=== PATIENT | female | born 1935 | race Caucasian/White ===

== ENCOUNTER 2017-01-12 15:26 | Inpatient (IN) | payer MEDICARE ==
--- NOTE | ~2017-01-12 | CN ---
Consultation Report [address]. [address] NAME: ALLY NEWBERRY : 34 STATUS : ADM IN PAT#: [id number] AGE: 81 ADM/REG DATE : 01/12/17 MR#: [id number] REPORT SERV DATE: 01/13/17 DICTATED BY: KODY ARAUJO DATE: 01/13/17 REPORT STATUS : Draft TRANSCRIBED BY: MODL DATE: 01/13/17 CARDIOLOGY CONSULTATION. DATE OF CONSULTATION: 01/13/2017 AUTOMATION TEST ENGINEER: Ross Leyva M.D. INDICATIONS: Abnormal troponin. HISTORY OF PRESENT ILLNESS: Ally Newberry is an 81-year-old female, who was admitted to the emergency room yesterday with altered mental status and hypoxia. She was in an assisted living facility, she apparently had issues with hypoxia throughout the morning yesterday and was brought to the emergency room. She went on to have some hypercarbia and was placed on BiPAP. She has known coronary artery disease and previous bypass grafting. She had been treated with Narcan several times throughout the night. There was a question that the altered mental status and hypoxia is related to medications. The patient is arousable this morning, but somnolent. She specifically denies any chest pain or precordial symptoms. She reports some vague shortness of breath. REVIEW OF SYSTEMS: Notable for some diarrhea apparently as well as vomiting over the preceding couple of days along with progressive lethargy. All other review of systems negative. In the emergency room. The patient tested positive for opiates as well as cannabinoids. PAST MEDICAL HISTORY: Chronic systolic heart failure with an ejection fraction of 40% by echo in June 2016. She has known coronary disease, previous bypass grafting. She has chronic kidney disease, hypertension, hyperlipidemia, diabetes, dementia, reflux disease, carotid disease, history of osteomyelitis and toe resection. She has a dual-chamber [employer] defibrillator, previous right carotid endarterectomy. ALLERGIES: DILAUDID. MEDICATIONS: 1. Norvasc. 2. Amoxicillin. 3. Aspirin. 4. Coreg. 5. Celexa. 6. Coenzyme Q10. 7. Aricept. 8. Lasix. 9. Currently IV subcu heparin. Consultation Report [address] [place]. [address] NAME: ALLY NEWBERRY : 34 STATUS : ADM IN PAT#: [id number] AGE: 81 ADM/REG DATE : 01/12/17 MR#: [id number] REPORT SERV DATE: 01/13/17 DICTATED BY: KODY ARAUJO DATE: 01/13/17 REPORT STATUS : Draft TRANSCRIBED BY: MODLibertad DATE: 01/13/17 10.Magnesium oxide. 11.Multivitamin. 12.Protonix. 13.Sodium bicarbonate. 14.Thiamin. 15.Levemir. SOCIAL HISTORY: No tobacco. Lives at [facility]. FAMILY HISTORY: Notable for diabetes and coronary artery disease. PHYSICAL EXAMINATION: VITAL SIGNS: Blood pressure 172/74, it has ranged 104 systolics up to 170s systolics, temperature 97.4, oxygen saturation 98% on BiPAP, and heart rate is 65. Telemetry is atrially paced with occasional ventricular pacing. ECG is atrially paced with inferior and anterolateral mild ST-segment depressions. GENERAL: Appears stated age, no distress. Lethargic on BiPAP. EYES: Sclerae anicteric, no arcus senilis. MOUTH: Oral mucosa moist, lips acyanotic. NECK: Jugular venous pressure normal, no carotid bruits. LUNGS: Diminished breath sounds in the bases. CARDIAC: Regular rate and rhythm, no murmurs, gallops or rubs. ABDOMEN: Soft, nondistended, nontender. EXTREMITIES: No edema. SKIN: Warm and dry. NEURO/PSYCH: Arousable, but then again easily somnolent. DATA: Creatinine 1.9, potassium 3.8. Troponin is 0.3. CK-MB 1.7 with a total CK of 63. Albumin is 3. Hemoglobin 10.9. Procalcitonin 1.5. BNP 1210. Initial troponin 0.29. IMPRESSIONS: 1. Hypoxia with altered mental status. Question med effects as described above. 2. Abnormal troponin with no chest pain and very mild ST depressions on ECG, anticipate this to be a type 2 process secondary to her hypoxia in the context of known coronary artery disease. 3. Known coronary artery disease with previous bypass grafting and ischemic cardiomyopathy. 4. Chronic systolic heart failure, on aspirin and Coreg, not on Dannie or ARB secondary to chronic kidney disease. 5. Dual chamber ICD with history of VF status post [employer] generator replacement which is her current device. 6. Chronic kidney disease. Consultation Report [place] [address] [place]. [address] NAME: ALLY NEWBERRY : 34 STATUS : ADM IN PAT#: [id number] AGE: 81 ADM/REG DATE : 01/12/17 MR#: [id number] REPORT SERV DATE: 01/13/17 DICTATED BY: KODY ARAUJO DATE: 01/13/17 REPORT STATUS : Draft TRANSCRIBED BY: MODL DATE: 01/13/17 7. Elevated BNP and mild pulmonary vascular prominence on chest x-ray. RECOMMENDATIONS: I agree with diuresis, strict I's and O's. Troponin abnormality appears to be a type 2 process, recommend conservative measures, add statin, and continue aspirin and Coreg. We will follow. VIKTORIYA/REY Kody Araujo M.D. / [id number] CC: MD Kody Castañeda NP
--- NOTE | ~2017-01-12 | DS ---
Discharge Summary [place] [id number] [facility] [place]. [address] NAME: TISHA NEWBERRY : 34 STATUS : ADM IN [facility]#: [id number] AGE: 81 ADM/REG DATE : 01/12/17 MR#: [id number] REPORT SERV DATE: 01/17/17 DICTATED BY: GABRIEL VICTORIA DATE: 01/16/17 REPORT STATUS : Draft TRANSCRIBED BY: MODLibertad DATE: 01/16/17 ADMISSION DATE: 01/12/2017 DISCHARGE DATE: 01/16/2017 PROCEDURES DONE: 1. 01/12/2017: CT of the head without contrast, no acute intracranial abnormality identified at this time. Mild to moderate cortical volume loss and findings compatible with mild chronic deep white matter ischemic changes. Slightly limited examination due to patient motion. 2. 01/12/2017: Chest x-ray: CABG. AICD. Shallow inspiration with minimal bibasilar atelectasis. Slight pulmonary vascular prominence. 3. 01/13/2017: Chest x-ray PA and lateral. Bibasilar atelectasis and vascular prominence have improved compared to prior exam. Cardiomegaly is unchanged. 4. 01/13/2017: Chest x-ray: Improving venous congestion. Continued low lung volumes with bibasilar atelectasis. However, there is improved aeration of the lung bases since prior to examination. Trace amount of pleural fluid may be present, status post CABG and AICD placement. 5. 01/14/2017: CT head without contrast, no acute intracranial hemorrhage or acute intracranial pathology. Stable mild diffuse cerebral involutional changes. Stable small bandlike old lacunar infarct, external capsule right basal ganglia. CONSULT: Dr. Araujo for Cardiology. REASON FOR ADMISSION: Change in mental status and hypoxemia. HISTORY OF PRESENT ILLNESS: An 81-year-old white female with past medical history of CHF with systolic dysfunction, EF 55%, status post AICD, chronic kidney disease, stage IV; hypertension; hyperlipidemia; diabetes type 2, dementia; presenting with altered mental status and hypoxemia. The patient was admitted for further evaluation of her hypoxemia. The patient was noted to have acute hypoxic respiratory failure questionable to medications. The patient was positive for opiates and also positive for cannabinoids. The patient was then admitted in the Intensive Care Unit for monitoring purposes. The patient was also noted to have elevated troponin. Cardiology was consulted. Cardiology felt the patient has elevated troponin with no chest pain and very mild ST depression. Cardiology felt the elevated troponin secondary to hypoxemia. The patient did not develop any chest pain during the hospital stay. However, her mental status gradually improved with oxygenation. The patient did have a little bit of diuretics given for venous congestion. Eventually, the patient's O2 saturation improved. Cardiology recommended to continue the diuretics. DISPOSITION: The patient is feeling fine, no complaints. ACTIVITIES: As tolerated. DIET: Diabetic. INSTRUCTIONS UPON DISCHARGE: The patient to follow up with Cardiology within two weeks' Discharge Summary [address] [place]. [address] NAME: TISHA NEWBERRY : 34 STATUS : ADM IN [facility]#: [id number] AGE: 81 ADM/REG DATE : 01/12/17 MR#: [id number] REPORT SERV DATE: 01/17/17 DICTATED BY: GABRIEL VICTORIA DATE: 01/16/17 REPORT STATUS : Draft TRANSCRIBED BY: REY DATE: 01/16/17 time. The patient is to follow up with Cardiology within one to two weeks' time. MEDICATION UPON DISCHARGE: 1. Norvasc 10 mg p.o. daily. 2. Aspirin 81 mg p.o. daily. 3. Lipitor 40 mg p.o. at bedtime. 4. Amoxicillin 5 mg p.o. t.i.d. 5. Coreg 6.25 mg p.o. b.i.d. 6. Celexa 30 mg p.o. daily. 7. Trazodone 25 mg p.o. at bedtime. 8. Vitamin D3 of 2000 units p.o. daily. 9. Coenzyme Q 100 mg p.o. daily. 10.Aricept 5 mg p.o. at bedtime. 11.Flonase one spray each morning. 12.Lasix 40 mg p.o. daily. 13.Insulin sliding scale. 14.Lantus 17 units subcu daily. 15.Protonix 40 mg p.o. b.i.d. 16.Bicarb 1300 mg p.o. b.i.d. 17.Albuterol inhaler q.6 hours p.r.n. 18.Magnesium 250 mg p.o. daily. 19.Oxycodone 5/325 one tab q.8 hours p.r.n. for pain. 20.Neurontin 300 mg p.o. b.i.d. 21.Ambien 5 mg p.o. at bedtime. 22.Ultram 25 mg p.o. q.8 p.r.n. 23.Imodium 2 mg Q. 6 per day p.r.n. 24.Tylenol 650 p.o. q.4 hours p.r.n. 25.Lotrimin topical p.r.n. 26.Flexeril 5 mg p.o. t.i.d. p.r.n. 27.Zofran 4 mg q.4 hours p.r.n. 28.Nitroglycerin sublingual p.r.n. PRIMARY DIAGNOSIS UPON DISCHARGE: 1. Encephalopathy secondary to hypoxemia versus medications. 2. Acute hypoxemia, respiratory failure secondary to medications. 3. Elevated troponin secondary to hypoxemia. 4. Congestive heart failure, systolic dysfunction, EF of 55%. 5. Chronic kidney disease, stage IV. 6. Positive UDS for cannabinoids. 7. Dementia. 8. Hypertension. 9. Hypercholesterolemia. Discharge Summary [address] [address] NAME: TISHA NEWBERRY : 34 STATUS : ADM IN [facility]#: [id number] AGE: 81 ADM/REG DATE : 01/12/17 MR#: [id number] REPORT SERV DATE: 01/17/17 DICTATED BY: GABRIEL VICTORIA DATE: 01/16/17 REPORT STATUS : Draft TRANSCRIBED BY: REY DATE: 01/16/17 BAUDILIO/REY Gabriel Victoria MD / [id number] CC: MD Kody Castañeda NP
--- NOTE | ~2017-01-12 | HP ---
History And Physical [facility] [address] [place]. [address] NAME: TISHA NEWBERRY : 34 STATUS : ADM IN [facility]#: [id number] AGE: 81 ADM/REG DATE : 01/12/17 MR#: [id number] REPORT SERV DATE: 01/12/17 DICTATED BY: VALENTÍN WILLARD DATE: 01/12/17 REPORT STATUS : Draft TRANSCRIBED BY: MODLibertad DATE: 01/12/17 DATE OF ADMISSION: 01/12/2017 POINT OF ENTRY: [facility] Emergency Department. PRIMARY CUTTER HEAD SHARPENER: Ross Leyva M.D. CHIEF COMPLAINT: Altered mental status and hypoxemia. HISTORY OF PRESENT ILLNESS: Ms. Newberry is an 81-year-old female with a history of chronic systolic congestive heart failure, most recent ejection fraction being 40%, status post ICD insertion as well as chronic kidney disease, stage III to stage IV; hypertension; hyperlipidemia; insulin-dependent diabetes mellitus type 2; as well as dementia who was brought to the emergency department today for reports of sedation, lethargy, altered mental status, as well as report of low oxygen saturations at her nursing facility. Son is at bedside and provides history as the patient is altered and sedated, and unable to provide any history for herself. She is a long-term resident of [facility]. He states that about two nights ago she told him over the phone that she has had an episode of vomiting as well as some diarrhea. Today, the family was called by [facility] for reports of the patient being very sedated, lethargic, almost unable to be aroused as well as low oxygen saturations as noted by the staff at [facility]. Initial evaluation in the emergency department is notable for some hypoxemia on room air, but currently saturating well on 4 liters by nasal cannula. Initial ABG was unremarkable, but she was placed on BiPAP for the patient's profound altered mental status and sedation. Chest x-ray showed some mild intravascular volume overload with poor inspiration. CT scan of the brain was unremarkable. Labs were unremarkable except for a troponin level of 0.29. Ammonia level was negative. Urinalysis was negative for infection. Urine drug screen was positive for opiates as well as cannabinoids. Despite being placed on BiPAP, she did develop some mild hypercarbia; however, with change in her BiPAP settings, this has since been corrected on a third ABG. She was given 0.2 mg of Narcan x2 without any significant improvement in her mental status. The patient was subsequently admitted to the Hospitalist Service for further evaluation and management. REVIEW OF SYSTEMS: Comprehensive review of systems otherwise negative unless listed in the history of present illness. Of note, the patient is unable to provide any history to us given her altered mental status. PREVIOUS MEDICAL HISTORY: 1. Chronic systolic congestive heart failure, ejection fraction of 40%, status post ICD insertion. 2. Chronic kidney disease, stage III to stage IV. Recent baseline creatinine approximately 1.7 to 2.2. 3. Hypertension. History And Physical [address] [address] NAME: TISHA NEWBERRY : 34 STATUS : ADM IN [facility]#: [id number] AGE: 81 ADM/REG DATE : 01/12/17 MR#: [id number] REPORT SERV DATE: 01/12/17 DICTATED BY: VALENTÍN WILLARD DATE: 01/12/17 REPORT STATUS : Draft TRANSCRIBED BY: REY DATE: 01/12/17 4. Hyperlipidemia. 5. Insulin-dependent diabetes mellitus type 2. 6. Dementia. 7. Gastroesophageal reflux disease with peptic ulcer disease. 8. Carotid vascular disease. 9. History of left second toe osteomyelitis, status post resection. PAST SURGICAL HISTORY: 1. AICD insertion. 2. Right carotid endarterectomy. 3. Right hip replacement. 4. Left wrist. 5. Left second toe amputation. ALLERGIES: TO DILAUDID. HOME MEDICATIONS: 1. Tylenol 650 mg q.4 hours p.r.n. 2. Albuterol 3 mL inhalation q.6 hours p.r.n. 3. Norvasc 10 mg daily. 4. Amoxicillin 500 mg t.i.d. 5. Aspirin 81 mg daily. 6. Carvedilol 6.25 mg b.i.d. 7. Vitamin D 2000 units b.i.d. 8. Celexa 30 mg daily. 9. CoQ10 100 mg daily. 10.Flexeril 5 mg t.i.d. p.r.n. 11.Aricept 5 mg q.h.s. 12.Flonase one spray nasal daily. 13.Lasix 40 mg daily. 14.Gabapentin 300 mg t.i.d. 15.Insulin sliding scale. 16.Lantus 17 units daily. 17.Imodium 2 mg p.o. q.6 hours p.r.n. 18.Nitroglycerin 0.4 mg sublingual p.r.n. 19.Zofran 4 mg q.4 hours p.r.n. 20.Percocet 5/325 one to two tablets q.6 hours p.r.n. 21.Protonix 40 mg daily. 22.Sodium bicarbonate 1300 mg b.i.d. 23.Tramadol 25 mg q.8 hours. 24.Trazodone 25 mg q.h.s. 25.Magnesium 250 mg daily. 26.Lotrimin AF topical. 27.Ambien 5 mg q.h.s. SOCIAL HISTORY: Denies any tobacco, alcohol, or illicits. She is a resident of [facility]. History And Physical [address] [address] NAME: TISHA NEWBERRY : 34 STATUS : ADM IN [facility]#: [id number] AGE: 81 ADM/REG DATE : 01/12/17 MR#: [id number] REPORT SERV DATE: 01/12/17 DICTATED BY: VALENTÍN WILLARD DATE: 01/12/17 REPORT STATUS : Draft TRANSCRIBED BY: REY DATE: 01/12/17 FAMILY MEDICAL HISTORY: Mother and father both with diabetes. Siblings with history of coronary artery disease. LABS AND IMAGIN. White count is 4.3, hemoglobin is 10.2, hematocrit is 31.2, and platelet count is 165. INR 1.2. 2. Sodium is 142, potassium of 4.1, chloride 103, carbon dioxide 30, BUN 45, creatinine 2.17, glucose is 103, calcium is 8.5, protein 6.1, albumin is 3.1, bilirubin is 0.6, ALT is 24, AST 34, and alkaline phosphatase is 89. 3. Troponin 0.29. 4. Lactic acid 0.7. 5. Ammonia level is 10. Urine drug screen positive for opiates and cannabinoids. Aspirin, acetaminophen, and alcohol levels are negative. 6. Urinalysis: Specific gravity was 1.013 with hazy appearance with 5 white blood cells with rare bacteria, but negative leukocyte esterase, negative nitrites with trace ketones. 7. Chest x-ray per my review shows some mild intravascular volume overload, primarily in the bases with poor inspiration. 8. CT scan of the brain shows no acute intracranial abnormality, does show some mild-to- moderate volume loss. 9. EKG per my review shows a paced rhythm with no evidence of any acute ischemia or infarction. 10.ABG #1; pH is 7.38, pCO2 is 46, PO2 is 73, bicarb is 27, and saturating 94% on 4 liters by nasal cannula. 11.ABG #2; pH is 7.23, pCO2 is 55, PO2 is 59, bicarb is 28, and saturating 98% on unknown oxygen support. 12.ABG #3; pH is 7.48, pCO2 is 34, PO2 is 84, bicarb is 25, and saturating 96% on 30% Fi. PHYSICAL EXAMINATION: VITAL SIGNS: Temperature is 100.3 degrees Fahrenheit, pulse is 65, respirations 12, saturating 97% on 4 liters by nasal cannula, and blood pressure 107/48. GENERAL: The patient is a chronically ill-appearing elderly female. Son is at bedside. She is currently very sedated and lethargic, will awaken to painful stimuli, but quickly falls back asleep after about 5 or 10 seconds. While awake, she will follow commands. Moves all extremities well and will verbalize. HEENT: Atraumatic and normocephalic. Dry mucous membranes. Pupils are equal and round, but very pinpoint at 1 to 2 mm. No scleral icterus. NECK: No jugular venous distention. No carotid bruits. CARDIAC: Regular rate and rhythm. No murmurs, rubs, or gallops. Normal S1 and S2. LUNGS: On BiPAP currently, she has poor inspiratory effort at this time secondary to sedation. I do not appreciate any gross wheezes, rhonchi, or crackles. ABDOMEN: Soft, nontender, and nondistended. Good bowel sounds. EXTREMITIES: Warm and well perfused. No cyanosis or clubbing. She has trace lower extremity edema. SKIN: Warm and dry. PSYCH: Sedated and lethargic. History And Physical [address] [place]. [address] NAME: NEWBERRYTISHA : 34 STATUS : ADM IN PAT#: [id number] AGE: 81 ADM/REG DATE : 01/12/17 MR#: [id number] REPORT SERV DATE: 01/12/17 DICTATED BY: VALENTÍN WILLARD DATE: 01/12/17 REPORT STATUS : Draft TRANSCRIBED BY: MODLibertad DATE: 01/12/17 NEURO: Sedated and lethargic. As I mentioned previously, will awaken with painful stimuli and stay awake for 5 to 15 seconds and then quickly fall back asleep. While awake, she will follow commands. She will make attempt to speak. ASSESSMENT AND PLAN: Ms. Newberry is an 81-year-old female who was brought from [facility] for reports of hypoxemia as well as altered mental status with profound sedation and lethargy of unclear etiology. PROBLEM LIST: 1. Acute encephalopathy. 2. Sedation and lethargy. 3. Elevated troponin level. 4. Acute hypoxic respiratory failure. 5. Transient hypercarbia, now resolved. 6. Chronic kidney disease, stage III to stage IV. 7. Chronic systolic congestive heart failure. PLAN: 1. Encephalopathy with sedation and lethargy. Etiology is unclear at this time. Medication effect is always possible as she is on multiple sedating medications including Flexeril, trazodone, tramadol, Percocet, Neurontin, and Ambien. We will hold all of these medications. Of note, she has now received a total of 0.8 mg of IV Narcan without significant effect. CT scan of brain was unremarkable. Ammonia level is negative. Urinalysis was negative for UTI and urine drug screen is positive for opiates as well as cannabinoids. We will consult Neurology for assistance with management of the patient's encephalopathy, check vitamin B12 level as well as thyroid function studies. We were unable to get MRI at this time secondary to the patient's ICD. We will continue the patient on BiPAP overnight to prevent any further hypercarbia and we will admit the patient to [facility] for close observation. 2. Acute hypoxic respiratory failure, unclear etiology at this time. She is requiring minimal oxygen support at this time. We will attempt to wean as tolerated. She appeared to be somewhat mildly volume overloaded on chest x-ray, but euvolemic on exam. BNP is pending. We will try some low-dose IV Lasix to see if this improves. 3. Transient hypercarbia. The patient did experience some hypercarbia while here in the ER, this has resolved while she has been on BiPAP. She has no history of lung disease. We will to continue to monitor while on BiPAP. 4. Elevated troponin level. EKG is nonischemic. The patient is unable to tell me if she has any chest pain or not. We will trend out cardiac enzymes and consult the patient's primary chief lifestyle officer, Dr. Leyva, for assistance. 5. Chronic systolic congestive heart failure. Again, the patient appears euvolemic on exam, but slightly overload on chest x-ray. We will place her on IV Lasix as she is unable to swallow at this time. 6. Chronic kidney disease, stage III to stage IV. Creatinine of 2.17 appeared to be within her recent baseline. We will continue to monitor. 7. DVT prophylaxis. Heparin subcutaneously. 8. Code status. The patient wishes to be full code. History And Physical [address] [address] NAME: TISHA NEWBERRY : 34 STATUS : ADM IN PAT#: [id number] AGE: 81 ADM/REG DATE : 01/12/17 MR#: [id number] REPORT SERV DATE: 01/12/17 DICTATED BY: VALENTÍN WILLARD DATE: 01/12/17 REPORT STATUS : Draft TRANSCRIBED BY: REY DATE: 01/12/17 EDEN/REY Valentín Willard MD / [id number] CC: MD Urbano Castañeda Jr., M.D. Gregg Shander, M.D.
--- NOTE | ~2017-01-12 | CN ---
Consultation Report [facility] [address] [place]. [address] NAME: TISHA NEWBERRY : 33 STATUS : ADM IN [facility]#: [id number] AGE: 81 ADM/REG DATE : 01/12/17 MR#: [id number] REPORT SERV DATE: 01/13/17 DICTATED BY: DATE: REPORT STATUS : Draft TRANSCRIBED BY: MODL DATE: 01/13/17 NEUROLOGY CONSULTATION DATE OF CONSULTATION: 01/13/2017 REASON FOR CONSULT: Encephalopathy. HISTORY OF PRESENT ILLNESS: This is an 81-year-old female who presented to [facility] secondary to lethargic and drowsiness with the patient was unable to provide history. At the time of ER presentation, the patient was noted to have some vomiting as well as diarrhea and was noted to have increasing sedation and lethargic. The patient was presented to the emergency department and was noted to have hypoxia with decreased O2 saturation. The patient was placed on BiPAP overnight with adjustment of setting and was noted to have subsequent improvement of oxygenation and was noted to have improved mental status today. According to nursing staff, the patient does not remember what was going on but does remember the gastrointestinal symptoms that the patient has had experienced. Denies any fevers and denies any focal weakness or numbness at the time of evaluation. The patient's review of systems otherwise negative except for those mentioned in the HPI. PAST MEDICAL HISTORY: Significant for chronic systolic congestive heart failure, EF of 40%, status post pacemaker and defibrillator placement. The patient also was noted to have chronic kidney disease, hypertension, hyperlipidemia, insulin-dependent diabetes, and history of dementia on Aricept; gastroesophageal reflux disease; carotid vascular disease; and history of osteomyelitis, status post resection of the toe. ALLERGIES: THE PATIENT WAS NOTED TO HAVE ALLERGY TO DILAUDID. HOME MEDICATIONS: The patient's home medications consist of Tylenol; albuterol; Norvasc; amoxicillin; aspirin; Coreg; vitamin D3; Celexa; Coenzyme Q10; Flexeril; Aricept; Flonase; Lasix; Neurontin; NovoLog; Lantus; Imodium; nitroglycerin; Zofran; Endocet; Protonix; sodium; Ultram; trazodone; magnesium; and Ambien. SOCIAL HISTORY: Denies tobacco, alcohol, or recreational drug usage. FAMILY HISTORY: Significant for diabetes as well as coronary artery disease. PHYSICAL EXAMINATION: VITAL SIGNS: At the time of evaluation overnight, the patient was noted to have vital signs with T-max of 98.3, heart rate of 64 to 65, respirations of 19 to 38, and blood pressure of 128 to 172 over 51 to 74. GENERAL: The patient is well developed, well nourished, in no acute distress. CARDIOVASCULAR: Regular rate and rhythm. No carotid bruits were otherwise auscultated. PULMONARY: Examination was clear to auscultation bilaterally. Consultation Report [facility] [id number] [place]. [address] NAME: TISHA NEWBERRY : 33 STATUS : ADM IN PAT#: [id number] AGE: 81 ADM/REG DATE : 01/12/17 MR#: [id number] REPORT SERV DATE: 01/13/17 DICTATED BY: DATE: REPORT STATUS : Draft TRANSCRIBED BY: MODL DATE: 01/13/17 NEUROLOGICAL: Generally, the patient is alert, oriented to person, place, year, and month; easily distractible at the time of evaluation, at times gives conflicting information at the time of evaluation. Intact registration, difficulty with recall. Cranial nerves 2 through 12, pupils equal, round, and reactive to light. Extraocular eye movement was noted to be intact with the patient noted to have mild decreased nasolabial fold on the right. Reports symmetrical facial sensation. Midline tongue. Normal palatal movement. Decreased hearing in bilateral ears. The patient was noted to have decreased range of motion in bilateral shoulders which the patient contributed to previous shoulder injury, otherwise is able to move bilateral upper extremity and is able to move bilateral lower extremity at the time of evaluation upon command. Right upper extremity [id number] examination demonstrated no ataxia with the patient having difficulties completing [id number] examination in her left upper extremity. Reports symmetrical sensation in bilateral upper extremity at the time of evaluation. Deep tendon reflex was 1+ throughout. Downgoing toe on bilateral plantar reflexes. Gait was not evaluated at the time of evaluation. LABORATORY STUDIES: Demonstrated white blood cell count of 4.2, hemoglobin of 10.9, hematocrit of 32.9, and platelet count of 156. Chemistry panel: Procalcitonin 1.51, sodium 144, potassium of 3.8, chloride 108, bicarb 28, BUN of 41, creatinine 1.91, glucose of 68, and calcium of 9.1. Troponin was 0.30. ABG this morning demonstrated pH of 7.37, pCO2 of 48, PO2 of 104, bicarb 26.5, and O2 saturation of 96.8. Urine drug screen is positive for cannabinoids as well as opioids. Urinalysis demonstrated negative leukocyte esterase, negative nitrite. CT scan of the brain demonstrated generalized atrophy, but otherwise no clear abnormality was noted. No acute event was seen. Chest x-ray this morning demonstrated improved venous congestion. IMPRESSION: Encephalopathy, improved mentation likely secondary to hypoxia. Symptom is improved. We will continue monitoring. If the patient became febrile, we will obtain lumbar puncture. RECOMMENDATIONS: 1. Continue Lasix as per hospitalist. 2. We will monitor the patient's mentation. 3. Lumbar puncture if febrile. 4. Avoid hypoxia. [facility]/MODL Preston Ramirez MD / [id number] CC: Consultation Report [address] [address] NAME: TISHA NEWBERRY : 33 STATUS : ADM IN [facility]#: [id number] AGE: 81 ADM/REG DATE : 01/12/17 MR#: [id number] REPORT SERV DATE: 01/13/17 DICTATED BY: DATE: REPORT STATUS : Draft TRANSCRIBED BY: MODL DATE: 01/13/17 MD Kody Castañeda NP
[2017-01-12 15:05] LABS: BE (BASE EXCESS) 1.6 MEQ/L (0 +/- 2.5); CARBOXYHEMOGLOBIN 1.7 % (0-3); HEMOBLOGIN CONTENT 10.4 G/DL (12-16); INSTRUMENT SERIAL # 8087; METHEMOGLOBIN 0.1 % (0-3); O2 CONTENT 13.5 VOL% (18-24); PCO2 (CO2 TENSION) 46 MMHG (35-45); PO2 (O2 TENSION) 73 MMHG (79-93); SAMPLE Arterial; pH 7.38 (7.37-7.43)
[2017-01-12 15:06] LABS: ALLENS TEST Pos; DEVICE NC
[2017-01-12 15:14] LABS: BASOPHILS 0.2 %; BASOPHILS ABSOLUTE 0.01 10/3/uL (0.0-0.16); EOSINOPHILS 0 %; ER CBC TAT 0 Hrs 07 Mins; IMMATURE GRANULOCYTES 0.2 %; IMMATURE GRANULOCYTES ABSOLUTE 0.01 10/3/uL (0.0-0.11); LYMPHOCYTES 47.4 %; LYMPHOCYTES ABSOLUTE 2.03 10/3/uL (0.67-4.30); MEAN CORPUS HGB CONC 32.7 g/dL (32.0-36.0); MEAN PLATELET VOLUME 9.9 fL (9.2-13.0); MONOCYTES 8.9 %; MONOCYTES ABSOLUTE 0.38 10/3/uL (0.21-1.20); NEUTROPHILS 43.3 %; NEUTROPHILS ABSOLUTE 1.85 10/3/uL (2.02-8.40); PLATELET COUNT 165 10/3/uL (150-400); RBC DISTRIBUTION WIDTH 14.4 % (12.0-16.0); WHITE BLOOD CELLS 4.3 10/3/uL (4.5-10.5)
[2017-01-12 15:16] LABS: HEMATOCRIT 31.2 % (36.0-48.0); HEMOGLOBIN 10.2 g/dL (12.0-16.0); MANUAL DIFF NO %; MEAN CORPUSCULAR VOLUME 97.8 fL (80-100); RED CELL COUNT 3.19 10/6/uL (4.0-5.6)
[2017-01-12 15:20] LABS: ASCORBIC ACID (UR NOT ORDER) NEG (NEG); BILIRUBIN, URINE NEGATIVE (NEG); ER URINALYSIS TAT 0 Hrs 13 Mins; KETONE, URINE TRACE MG/DL (NEG); LEUKOCYTE ESTERASE(NOT OR NEG (NEG); NITRITE (URINE) NEG (NEG); WBC (NOT ORDERED) (RFLEX) 5 (0-5)
[~2017-01-12 15:26] MED LIST: *UNABLE1; ACET500CAP PO; ALLEGRA PO; AMB10 PO; AMB5 PO; AMOXIL500 MG PO; ARICEPT5 PO; ASAB PO; ASPIRIN; BACDS PO; CELEXA; CELEXA10 PO; CELEXA20 PO; CELEXA40 MG PO; CLARIT10 PO; CO Q-10100 MG PO; COREG3 PO; COREG6 PO; DEMA10T PO; DIABETA5 PO; DIOV160 PO; DIOV80 PO; ENDOCET1 TAB PO; FLONASE NAS; HALF81 PO; HUMALOG SC; IMOD PO; INSNOVR SC; L20 PO; L40 PO; LANTUS SC; LANTUSCART SC; LIPITOR; LIPITOR20 PO; LIPITOR40 PO; LOP50 PO; LORTAB10 PO; MAGNESIUM 250MG PO; MAGNESIUM PO; MAGOX4 PO; MICRONASE5 MG PO; MUCINEX600 MG PO; MULTIVITAMI1; MULTIVITAMI1 PO; MVI PO; NEUR100 PO; NEUR300 PO; NEURONTIN; NORCO1 TAB PO; NORV10 PO; NORV5 PO; NOVOLOG SC; NOVOPEN SC; OXYCOD PO; PCET PO; PERCOCET1 TA4 PO; PRILOSEC40 MG PO; PRIN2.5 PO; PRIN5 PO; PROTONIX; PROTONIX PO; PROTONIX20 MG PO; SILVADENE1 % TOP; SODBICAR10 PO; T PO; TRAZ50 PO; ULTRAM50 PO; VITAMIN D1000 UNI1 PO; VITAMIN D2000 UNIT PO; VITAMIN D31000 UNIT PO; VITAMIN D400 UNI1 PO; VITD PO; ZOFRAN8 PO; ZYRTEC; ZYRTEC ALLGY10 MG PO
[2017-01-12 15:32] LABS: ALBUMIN 3.1 G/DL (3.5-5.0); ALKALINE PHOSPHATASE 89 U/L (45-117); BUN (BLOOD UREA NITROGEN) 45 MG/DL (6-23); CALCIUM, SERUM 8.5 MG/DL (8.5-10.4); CHLORIDE, SERUM 103 MMOL/L (96-112); CO2 (CARBON DIOXIDE) 30 MMOL/L (24-34); CREATININE 2.17 MG/DL (0.55-1.02); GFR AFRICAN AMERICAN 24 ML/MIN (>=60); GFR NON AFRICAN AMERICAN 21 ML/MIN (>=60); POTASSIUM, SERUM 4.1 MMOL/L (3.5-5.3); SGOT(AST) 34 U/L (5-40); SGPT(ALT) 24 U/L (5-65); SODIUM, SERUM 142 MMOL/L (135-148); TOTAL BILIRUBIN 0.6 MG/DL (0-1.2); TOTAL PROTEIN 6.1 G/DL (6.0-8.5)
[2017-01-12 15:33] LABS: GLUCOSE, SERUM 103 MG/DL (60-99); TROPONIN I 0.29 NG/ML (<0.05)
[2017-01-12 16:00] LABS: INTERNATIONAL NORMAL RATI 1.2 UNITS (-); PARTIAL THROMBO TIME 34.3 SEC (22.5-37.2); PROTIME (NOT ORD) 15.4 SEC (12.0-14.5)
[2017-01-12] MEDS ORDERED: ALBUTEROL0.083 % INH (16:21)
[2017-01-12] MEDS ORDERED: LOTRIMIN AF TOP (16:23)
[2017-01-12] MEDS ORDERED: FLEXERIL5 MG PO (16:23)
[2017-01-12] MEDS ORDERED: NTG150 SL (16:24)
[2017-01-12] MEDS ORDERED: ZOFRAN4 PO (16:24)
[2017-01-12] MEDS ORDERED: AMOXIL500C PO (16:25)
[2017-01-12 16:37] LABS: LACTATE 0.7 MMOL/L (0.3-2.4)
[2017-01-12 17:09] LABS: ALLENS TEST Pos; BE (BASE EXCESS) 1.6 MEQ/L (0 +/- 2.5); CARBOXYHEMOGLOBIN 0.4 % (0-3); DEVICE NRB; HCO3 (ACTUAL BICARBONATE) 28.3 MEQ/L (23-27); HEMOBLOGIN CONTENT 10.7 G/DL (12-16); INSTRUMENT SERIAL # 8087; METHEMOGLOBIN 0.1 % (0-3); O2 CONTENT 15.4 VOL% (18-24); PCO2 (CO2 TENSION) 55 MMHG (35-45); PO2 (O2 TENSION) 259 MMHG (79-93); SAMPLE Arterial; pH 7.33 (7.37-7.43)
[2017-01-12 17:16] LABS: AMPHETAMINES (NOT ORD) NEG (NEG); BARBITURATES (NOT ORDERED NEG (NEG); BENZODIAZEPINES (NOT ORD) NEG (NEG); CANNABINOIDS (THC) POS (NEG); COCAINE (NOT ORDERED) NEG (NEG); OPIATES POS (NEG); PHENCYCLIDINE(PCP) NEG (NEG); TRICYCLICS NEG (NEG)
[2017-01-12 17:48] LABS: ACETAMINOPHEN LEVEL (TYLENOL) < 2.0 MCG/ML (10.0-20.0); ALCOHOL < 10 MG/DL (0); SALICYLATE < 1.7 MG/DL (-)
[2017-01-12 19:48] LABS: ALLENS TEST Pos; BE (BASE EXCESS) 2.1 MEQ/L (0 +/- 2.5); BIPAP 16/6 cm.H2O; CARBOXYHEMOGLOBIN 1.1 % (0-3); HCO3 (ACTUAL BICARBONATE) 25.3 MEQ/L (23-27); HEMOBLOGIN CONTENT 11.2 G/DL (12-16); INSTRUMENT SERIAL # 8087; O2 CONTENT 15.1 VOL% (18-24); OPERATOR ID 334499; PCO2 (CO2 TENSION) 34 MMHG (35-45); PO2 (O2 TENSION) 84 MMHG (79-93); SAMPLE Arterial; pH 7.48 (7.37-7.43)
[2017-01-12 21:52] LABS: PROCALCITONIN 1.51 ng/mL (<0.5)
[2017-01-12 22:34] LABS: FREE T4 1.02 NG/DL (0.76-1.46); ULTRASENSITIVE TSH 0.547 MCIU/ML (0.358-3.740)
[2017-01-12 23:20] LABS: ALLENS TEST Pos; BE (BASE EXCESS) 1.6 MEQ/L (0 +/- 2.5); BIPAP 16/6 cm.H2O; CARBOXYHEMOGLOBIN 0.3 % (0-3); HCO3 (ACTUAL BICARBONATE) 26.9 MEQ/L (23-27); HEMOBLOGIN CONTENT 10.9 G/DL (12-16); INSTRUMENT SERIAL # 8083; METHEMOGLOBIN 0.2 % (0-3); O2 CONTENT 16.6 VOL% (18-24); OPERATOR ID 14661; PCO2 (CO2 TENSION) 45 MMHG (35-45); PO2 (O2 TENSION) 532 MMHG (79-93); SAMPLE Arterial; pH 7.39 (7.37-7.43)
[2017-01-13 05:18] LABS: ALLENS TEST Pos; BE (BASE EXCESS) 0.8 MEQ/L (0 +/- 2.5); BIPAP 16/6 cm.H2O; CARBOXYHEMOGLOBIN 0.3 % (0-3); HCO3 (ACTUAL BICARBONATE) 26.5 MEQ/L (23-27); HEMOBLOGIN CONTENT 10.9 G/DL (12-16); INSTRUMENT SERIAL # 8083; METHEMOGLOBIN 0.3 % (0-3); O2 CONTENT 14.9 VOL% (18-24); OPERATOR ID 31061; PCO2 (CO2 TENSION) 48 MMHG (35-45); PO2 (O2 TENSION) 104 MMHG (79-93); SAMPLE Arterial; pH 7.37 (7.37-7.43)
[2017-01-13 05:22] LABS: BASOPHILS 0.2 %; BASOPHILS ABSOLUTE 0.01 10/3/uL (0.0-0.16); EOSINOPHILS 1.7 %; EOSINOPHILS ABSOLUTE 0.07 10/3/uL (0.0-0.53); HEMATOCRIT 32.9 % (36.0-48.0); HEMOGLOBIN 10.9 g/dL (12.0-16.0); LYMPHOCYTES 36.4 %; LYMPHOCYTES ABSOLUTE 1.53 10/3/uL (0.67-4.30); MEAN CORPUS HGB CONC 33.1 g/dL (32.0-36.0); MEAN CORPUSCULAR HEMOGLOB 31.9 pg (26.0-34.0); MEAN CORPUSCULAR VOLUME 96.2 fL (80-100); MEAN PLATELET VOLUME 10.1 fL (9.2-13.0); MONOCYTES 8.3 %; MONOCYTES ABSOLUTE 0.35 10/3/uL (0.21-1.20); NEUTROPHILS 53.4 %; NEUTROPHILS ABSOLUTE 2.24 10/3/uL (2.02-8.40); PLATELET COUNT 156 10/3/uL (150-400); RBC DISTRIBUTION WIDTH 14.1 % (12.0-16.0); RED CELL COUNT 3.42 10/6/uL (4.0-5.6); WHITE BLOOD CELLS 4.2 10/3/uL (4.5-10.5)
[2017-01-13 05:24] LABS: MANUAL DIFF NO %
[2017-01-13 05:45] LABS: CALCIUM, SERUM 9.1 MG/DL (8.5-10.4); CHLORIDE, SERUM 108 MMOL/L (96-112); CO2 (CARBON DIOXIDE) 28 MMOL/L (24-34); CPK 63 U/L (0-200); CREATININE 1.91 MG/DL (0.55-1.02); GFR AFRICAN AMERICAN 28 ML/MIN (>=60); GFR NON AFRICAN AMERICAN 24 ML/MIN (>=60); POTASSIUM, SERUM 3.8 MMOL/L (3.5-5.3); SODIUM, SERUM 144 MMOL/L (135-148)
[2017-01-13 05:46] LABS: BUN (BLOOD UREA NITROGEN) 41 MG/DL (6-23); CK-MB 1.7 NG/ML; GLUCOSE, SERUM 68 MG/DL (60-99); PHOSPHORUS, SERUM 3.1 MG/DL (2.5-4.5)
[2017-01-14 04:52] LABS: BASOPHILS 0.4 %; BASOPHILS ABSOLUTE 0.02 10/3/uL (0.0-0.16); EOSINOPHILS 4.4 %; EOSINOPHILS ABSOLUTE 0.22 10/3/uL (0.0-0.53); HEMATOCRIT 32.8 % (36.0-48.0); HEMOGLOBIN 10.9 g/dL (12.0-16.0); IMMATURE GRANULOCYTES 0.2 %; IMMATURE GRANULOCYTES ABSOLUTE 0.01 10/3/uL (0.0-0.11); LYMPHOCYTES 37.8 %; LYMPHOCYTES ABSOLUTE 1.87 10/3/uL (0.67-4.30); MEAN CORPUS HGB CONC 33.2 g/dL (32.0-36.0); MEAN CORPUSCULAR HEMOGLOB 31.5 pg (26.0-34.0); MEAN CORPUSCULAR VOLUME 94.8 fL (80-100); MONOCYTES 7.5 %; MONOCYTES ABSOLUTE 0.37 10/3/uL (0.21-1.20); NEUTROPHILS 49.7 %; NEUTROPHILS ABSOLUTE 2.46 10/3/uL (2.02-8.40); PLATELET COUNT 165 10/3/uL (150-400); RBC DISTRIBUTION WIDTH 13.7 % (12.0-16.0); RED CELL COUNT 3.46 10/6/uL (4.0-5.6)
[2017-01-14 04:58] LABS: MANUAL DIFF NO %
[2017-01-14 05:13] LABS: A/G RATIO 0.9 (0.7-1.9); ALBUMIN 2.9 G/DL (3.5-5.0); ALKALINE PHOSPHATASE 86 U/L (45-117); BUN (BLOOD UREA NITROGEN) 39 MG/DL (6-23); CALCIUM, SERUM 8.9 MG/DL (8.5-10.4); CHLORIDE, SERUM 104 MMOL/L (96-112); CO2 (CARBON DIOXIDE) 31 MMOL/L (24-34); CREATININE 1.71 MG/DL (0.55-1.02); GFR AFRICAN AMERICAN 32 ML/MIN (>=60); GFR NON AFRICAN AMERICAN 27 ML/MIN (>=60); GLOBULIN 3.2 G/DL (2.5-4.1); GLUCOSE, SERUM 67 MG/DL (60-99); POTASSIUM, SERUM 3.6 MMOL/L (3.5-5.3); SGOT(AST) 70 U/L (5-40); SGPT(ALT) 60 U/L (5-65); SODIUM, SERUM 143 MMOL/L (135-148); TOTAL BILIRUBIN 0.5 MG/DL (0-1.2); TOTAL PROTEIN 6.1 G/DL (6.0-8.5)
[2017-01-14 05:21] LABS: PHOSPHORUS, SERUM 2.1 MG/DL (2.5-4.5)
[2017-01-15 04:59] LABS: BASOPHILS 0.2 %; BASOPHILS ABSOLUTE 0.01 10/3/uL (0.0-0.16); EOSINOPHILS 3.4 %; EOSINOPHILS ABSOLUTE 0.16 10/3/uL (0.0-0.53); HEMATOCRIT 34.8 % (36.0-48.0); HEMOGLOBIN 11.7 g/dL (12.0-16.0); LYMPHOCYTES 35.8 %; MEAN CORPUS HGB CONC 33.6 g/dL (32.0-36.0); MEAN CORPUSCULAR HEMOGLOB 31.9 pg (26.0-34.0); MEAN CORPUSCULAR VOLUME 94.8 fL (80-100); MEAN PLATELET VOLUME 10.1 fL (9.2-13.0); MONOCYTES 7.2 %; MONOCYTES ABSOLUTE 0.34 10/3/uL (0.21-1.20); NEUTROPHILS 53.4 %; NEUTROPHILS ABSOLUTE 2.54 10/3/uL (2.02-8.40); PLATELET COUNT 179 10/3/uL (150-400); RBC DISTRIBUTION WIDTH 13.5 % (12.0-16.0); RED CELL COUNT 3.67 10/6/uL (4.0-5.6); WHITE BLOOD CELLS 4.8 10/3/uL (4.5-10.5)
[2017-01-15 05:05] LABS: MANUAL DIFF NO %
[2017-01-15 05:18] LABS: A/G RATIO 0.9 (0.7-1.9); ALBUMIN 3.1 G/DL (3.5-5.0); ALKALINE PHOSPHATASE 90 U/L (45-117); CHLORIDE, SERUM 104 MMOL/L (96-112); CO2 (CARBON DIOXIDE) 33 MMOL/L (24-34); CREATININE 1.72 MG/DL (0.55-1.02); GFR AFRICAN AMERICAN 32 ML/MIN (>=60); GFR NON AFRICAN AMERICAN 27 ML/MIN (>=60); GLOBULIN 3.5 G/DL (2.5-4.1); PHOSPHORUS, SERUM 2.3 MG/DL (2.5-4.5); POTASSIUM, SERUM 3.5 MMOL/L (3.5-5.3); SGOT(AST) 45 U/L (5-40); SGPT(ALT) 57 U/L (5-65); SODIUM, SERUM 145 MMOL/L (135-148); TOTAL BILIRUBIN 0.6 MG/DL (0-1.2); TOTAL PROTEIN 6.6 G/DL (6.0-8.5)
[2017-01-15 05:24] LABS: BUN (BLOOD UREA NITROGEN) 32 MG/DL (6-23); GLUCOSE, SERUM 81 MG/DL (60-99)
[2017-01-15 05:28] LABS: CALCIUM, SERUM 8.7 MG/DL (8.5-10.4)
[2017-01-16 05:45] LABS: CALCIUM, SERUM 9.3 MG/DL (8.5-10.4); CHLORIDE, SERUM 103 MMOL/L (96-112); CO2 (CARBON DIOXIDE) 33 MMOL/L (24-34); CREATININE 1.65 MG/DL (0.55-1.02); GFR AFRICAN AMERICAN 33 ML/MIN (>=60); GFR NON AFRICAN AMERICAN 29 ML/MIN (>=60); POTASSIUM, SERUM 4.1 MMOL/L (3.5-5.3); SODIUM, SERUM 144 MMOL/L (135-148)
[2017-01-16 05:47] LABS: BUN (BLOOD UREA NITROGEN) 25 MG/DL (6-23); GLUCOSE, SERUM 63 MG/DL (60-99); PHOSPHORUS, SERUM 3.5 MG/DL (2.5-4.5)
[2017-01-17 01:24] LABS: BASOPHILS 0.5 %; BASOPHILS ABSOLUTE 0.03 10/3/uL (0.0-0.16); EOSINOPHILS ABSOLUTE 0.19 10/3/uL (0.0-0.53); HEMATOCRIT 37.1 % (36.0-48.0); HEMOGLOBIN 12.5 g/dL (12.0-16.0); LYMPHOCYTES 37.4 %; LYMPHOCYTES ABSOLUTE 2.34 10/3/uL (0.67-4.30); MANUAL DIFF NO %; MEAN CORPUS HGB CONC 33.7 g/dL (32.0-36.0); MEAN CORPUSCULAR VOLUME 94.9 fL (80-100); MEAN PLATELET VOLUME 9.9 fL (9.2-13.0); MONOCYTES 6.7 %; MONOCYTES ABSOLUTE 0.42 10/3/uL (0.21-1.20); NEUTROPHILS 52.4 %; NEUTROPHILS ABSOLUTE 3.28 10/3/uL (2.02-8.40); PLATELET COUNT 194 10/3/uL (150-400); RBC DISTRIBUTION WIDTH 13.2 % (12.0-16.0); RED CELL COUNT 3.91 10/6/uL (4.0-5.6); WHITE BLOOD CELLS 6.3 10/3/uL (4.5-10.5)
[2017-01-17 01:27] LABS: BUN (BLOOD UREA NITROGEN) 24 MG/DL (6-23); CHLORIDE, SERUM 102 MMOL/L (96-112); CO2 (CARBON DIOXIDE) 33 MMOL/L (24-34); CREATININE 1.58 MG/DL (0.55-1.02); GFR AFRICAN AMERICAN 35 ML/MIN (>=60); GFR NON AFRICAN AMERICAN 30 ML/MIN (>=60); GLUCOSE, SERUM 75 MG/DL (60-99); POTASSIUM, SERUM 4.1 MMOL/L (3.5-5.3); SODIUM, SERUM 142 MMOL/L (135-148)
== END 2017-01-17 13:34 | DRG 189 ==
LOC: ER 15:26 → IMCU 20:56 → 7NO 01-15 09:41
PROVIDERS: Hospitalist; Internal Medicine
PROC: 5A09357 Assistance with Respiratory Ventilation, Less than 24 Consecutive Hours, Continuous Positive Airway Pressure (ICD-10-PCS; principal; 2017-01-12)
DX: J96.01 Acute respiratory failure with hypoxia (principal); G92 Toxic encephalopathy; G93.1 Anoxic brain damage, not elsewhere classified; I13.0 Hypertensive heart and chronic kidney disease with heart failure and stage 1 through stage 4 chronic kidney disease, or unspecified chronic kidney disease; I50.22 Chronic systolic (congestive) heart failure; E11.22 Type 2 diabetes mellitus with diabetic chronic kidney disease; I24.8 Other forms of acute ischemic heart disease; N18.4 Chronic kidney disease, stage 4 (severe); J96.02 Acute respiratory failure with hypercapnia; I25.10 Atherosclerotic heart disease of native coronary artery without angina pectoris; F03.90 Unspecified dementia, unspecified severity, without behavioral disturbance, psychotic disturbance, mood disturbance, and anxiety; K21.9 Gastro-esophageal reflux disease without esophagitis; E78.5 Hyperlipidemia, unspecified; I25.5 Ischemic cardiomyopathy; E78.00 Pure hypercholesterolemia, unspecified; T40.605A Adverse effect of unspecified narcotics, initial encounter; Z95.1 Presence of aortocoronary bypass graft; Z82.49 Family history of ischemic heart disease and other diseases of the circulatory system; Z83.3 Family history of diabetes mellitus; Z95.810 Presence of automatic (implantable) cardiac defibrillator; Z89.429 Acquired absence of other toe(s), unspecified side; Z88.5 Allergy status to narcotic agent; Z79.4 Long term (current) use of insulin
CPT/HCPCS: 36600; 70450; 71010; 71020; 80048; 80053; 80069; 80305; 80307; 81001; 82140; 82550; 82553; 82570; 82805; 82962; 83605; 83735; 83880; 84100; 84145; 84439; 84443; 84484; 85025; 85610; 85730; 87040; 87641; 93005; 94640; 94660; 96374; 96376; 97161-GP; 99285; A9270-GY; J0360; J2405

== ENCOUNTER 2017-03-18 23:50 | Emergency (ER) | payer MEDICARE ==
[~2017-03-18 23:50] MED LIST changes: +ALBUTEROL0.083 % INH; +AMOXIL500C PO; +FLEXERIL5 MG PO; +LOTRIMIN AF TOP; +NTG150 SL; +ZOFRAN4 PO
== END 2017-03-19 02:10 | disposition home or self-care (01) ==
LOC: ER 23:50
DX: S00.83XA Contusion of other part of head, initial encounter (principal); I13.0 Hypertensive heart and chronic kidney disease with heart failure and stage 1 through stage 4 chronic kidney disease, or unspecified chronic kidney disease; I50.9 Heart failure, unspecified; N18.9 Chronic kidney disease, unspecified; E11.22 Type 2 diabetes mellitus with diabetic chronic kidney disease; I25.2 Old myocardial infarction; Z95.0 Presence of cardiac pacemaker; W01.0XXA Fall on same level from slipping, tripping and stumbling without subsequent striking against object, initial encounter; Z88.5 Allergy status to narcotic agent; Z79.4 Long term (current) use of insulin; Z79.82 Long term (current) use of aspirin; Z79.2 Long term (current) use of antibiotics; Z79.891 Long term (current) use of opiate analgesic; Z79.899 Other long term (current) drug therapy
CPT/HCPCS: 70450; 72125; 99285